=== PATIENT | female | born 1985 | race Caucasian/White ===

== ENCOUNTER 2016-07-21 16:41 | Outpatient (CLI) | payer BC ==
[~2016-07-21 16:41] MED LIST: ENDOCET 5-3251 EACH PO; IBUPROFEN800 MG PO; PRENATAL TABLE1 EAC3 PO; ZYRTEC10 M3 PO
[2016-07-21 16:54] VITALS: BP 115/60
== END 2016-07-21 18:58 | disposition home or self-care (01) ==
LOC: LDRP-OP 16:41 → 2WEST 16:45 → LDRP-OP 10-20 12:42
DX: O26.893 Other specified pregnancy related conditions, third trimester (principal); R10.9 Unspecified abdominal pain; Z3A.31 31 weeks gestation of pregnancy
CPT/HCPCS: 59025; G0378

== ENCOUNTER 2016-09-05 09:33 | Inpatient (IN) | payer BC ==
[~2016-09-05] VITALS: Ht 157.5 cm; Wt 81.6 kg
[2016-09-05] VITALS (16 sets, daily range): BP systolic 104–121; BP diastolic 62–70
[2016-09-05] MEDS ORDERED: COLACE100 MG PO (10:19)
[2016-09-05 10:42] LABS: EOSINOPHIL (%) 1.2 % (0-5); EOSINOPHIL COUNT 0.1 K/uL (0-0.3); HEMATOCRIT 35.3 % (36.0-46.0); IMMATURE GRANULOCYTE (%) 1.6 % (0.0-0.7); IMMATURE GRANULOCYTE COUNT 0.1 K/uL; INSTRUMENT ABS NEUTROPHIL CT 5.3 K/uL; LYMPHOCYTE COUNT 1.7 K/uL (1.0-2.8); MCH 31.6 PG (29.0-34.0); MCHC 34.6 G/DL (30.0-36.0); MCV 91.5 FL (83-99); MEAN PLAT.VOLUME 11.6 uM^3 (9.5-12.4); MONOCYTE COUNT 0.5 K/uL (0-0.8); NEUTROPHIL (%) 68.8 % (45-76); NEUTROPHIL COUNT 5.3 K/uL (1.8-6.4); PLATELET COUNT 176 K/uL (156-360); RBC DIS.WIDTH-CV 14.2 % (11.8-14.6); RBC DIS.WIDTH-SD 46.7 % (39-53); RED BLOOD COUNT 3.86 M/uL (3.80-5.20); WHITE BLOOD COUNT 7.6 K/uL (4.1-10.2)
[2016-09-05] MEDS ORDERED: IBUPROFEN800 MG PO (20:03)
[2016-09-06 07:35] VITALS: BP 87/52
[2016-09-06 08:45] VITALS: BP 112/54
[2016-09-06 15:38] VITALS: BP 86/53
[2016-09-06 15:46] VITALS: BP 107/59
[2016-09-07 07:43] VITALS: BP 101/64
== END 2016-09-07 13:05 | disposition home or self-care (01) | DRG 775 ==
LOC: LDRP-OP 09:33 → 2WEST 09:37 → LDRP-OP 10-20 20:55
PROVIDERS: Nurse Practitioner
PROC: 10E0XZZ Delivery of Products of Conception, External Approach (ICD-10-PCS; principal; 2016-09-05)
DX: O24.420 Gestational diabetes mellitus in childbirth, diet controlled (principal); Z3A.38 38 weeks gestation of pregnancy; Z37.0 Single live birth; O99.824 Streptococcus B carrier state complicating childbirth; O34.13 Maternal care for benign tumor of corpus uteri, third trimester; D25.2 Subserosal leiomyoma of uterus
CPT/HCPCS: 85025; J2540; J7120

== ENCOUNTER 2016-09-25 08:32 | Inpatient (IN) | payer BC ==
[~2016-09-25] VITALS: Ht 157.5 cm; Wt 74.0 kg
[~2016-09-25 08:32] MED LIST changes: +COLACE100 MG PO
[2016-09-25 10:36] LABS: EOSINOPHIL (%) 0.2 % (0-5); HEMATOCRIT 45.6 % (36.0-46.0); IMMATURE GRANULOCYTE (%) 0.5 % (0.0-0.7); IMMATURE GRANULOCYTE COUNT 0.1 K/uL; INSTRUMENT ABS NEUTROPHIL CT 12.1 K/uL; LYMPHOCYTE COUNT 0.5 K/uL (1.0-2.8); MCH 30.1 PG (29.0-34.0); MCHC 33.1 G/DL (30.0-36.0); MCV 90.8 FL (83-99); MEAN PLAT.VOLUME 11.2 uM^3 (9.5-12.4); MONOCYTE (%) 2.8 % (3-12); MONOCYTE COUNT 0.4 K/uL (0-0.8); NEUTROPHIL (%) 92.2 % (45-76); NEUTROPHIL COUNT 12.1 K/uL (1.8-6.4); RBC DIS.WIDTH-CV 12.4 % (11.8-14.6); RBC DIS.WIDTH-SD 41.1 % (39-53); WHITE BLOOD COUNT 13.1 K/uL (4.1-10.2)
[2016-09-25 10:37] LABS: PLATELET COUNT 252 K/uL (156-360); RED BLOOD COUNT 5.02 M/uL (3.80-5.20)
[2016-09-25 10:50] LABS: CHLORIDE 106 mEq/L (99-109); POTASSIUM 3.7 mEq/L (3.7-5.4); SODIUM 139 mEq/L (136-147)
[2016-09-25 10:52] LABS: GLUCOSE 108 mg/dL (70-99)
[2016-09-25 10:54] LABS: ANION GAP 9 MEQ/L (2-14); TOTAL BILIRUBIN 0.4 mg/dL (0.0-1.0)
[2016-09-25 10:56] LABS: ALKALINE PHOSPHATASE 79 IU/L (3-129); GFR ESTIMATE (CALCULATED) > 59 mL/min/
[2016-09-25 10:57] LABS: UREA NITROGEN (BUN) 16 mg/dL (9-23)
[2016-09-25 10:59] LABS: LIPASE 17 U/L (1.0-51.0)
[2016-09-25 12:39] LABS: ADD MIUA? YES; BILIRUBIN NEGATIVE; BLOOD LARGE; COLOR YELLOW ((YELLOW)); GLUCOSE (STRIP) NEGATIVE; KETONES NEGATIVE; LEUKOCYTES MODERATE; NITRITE NEGATIVE; PROTEIN (STRIP) NEGATIVE; SPECIFIC GRAVITY 1.036 (1.000-1.030); UROBILINOGEN 0.2 MG/DL (0.2-1.0)
[2016-09-25 13:02] LABS: BACTERIA RARE /HPF; EPITHELIAL CELLS RARE /HPF; MUCUS TRACE /LPF; RED BLOOD CELLS TNTC /HPF (0-5)
[2016-09-25] MEDS ORDERED: ZYRTEC10 M3 PO (18:41)
[2016-09-25 22:48] VITALS: BP 105/56
[2016-09-26] VITALS (8 sets, daily range): BP systolic 80–105; BP diastolic 42–65
[2016-09-26 07:38] LABS: EOSINOPHIL (%) 1.7 % (0-5); EOSINOPHIL COUNT 0.2 K/uL (0-0.3); HEMATOCRIT 36.3 % (36.0-46.0); IMMATURE GRANULOCYTE (%) 0.3 % (0.0-0.7); LYMPHOCYTE COUNT 1.4 K/uL (1.0-2.8); MCH 30.3 PG (29.0-34.0); MCHC 32.5 G/DL (30.0-36.0); MCV 93.3 FL (83-99); MEAN PLAT.VOLUME 11.5 uM^3 (9.5-12.4); MONOCYTE (%) 3.8 % (3-12); MONOCYTE COUNT 0.3 K/uL (0-0.8); NEUTROPHIL (%) 78.5 % (45-76); PLATELET COUNT 214 K/uL (156-360); RBC DIS.WIDTH-CV 12.9 % (11.8-14.6); RBC DIS.WIDTH-SD 44.1 % (39-53)
[2016-09-26 07:40] LABS: RED BLOOD COUNT 3.89 M/uL (3.80-5.20)
[2016-09-26 07:45] LABS: ALKALINE PHOSPHATASE 51 IU/L (3-129); ANION GAP 8 MEQ/L (2-14); CHLORIDE 108 MEQ/L (99-109); GFR ESTIMATE (CALCULATED) > 59 mL/min/; POTASSIUM 3.8 MEQ/L (3.7-5.4); SAMPLE HEMOLYSIS CHECK 0; SAMPLE ICTERIC CHECK 0; SAMPLE LIPEMIA CHECK 0; SODIUM 140 MEQ/L (136-147); TOTAL BILIRUBIN 0.5 MG/DL (0.0-1.0); UREA NITROGEN (BUN) 8 mg/dL (9-23)
[2016-09-26 07:47] LABS: GLUCOSE 71 mg/dL (70-99)
[2016-09-27 03:40] VITALS: BP 97/50
[2016-09-27 08:40] VITALS: BP 105/61
[2016-09-27] MEDS ORDERED: AUGMENTIN500 MG PO (09:49)
[2016-09-27] MEDS ORDERED: PERCOCET 5/31 TABLET PO (09:50)
[2016-09-27 16:30] VITALS: BP 123/68
== END 2016-09-27 18:45 | disposition home or self-care (01) | DRG 776 ==
LOC: EME 08:32 → 2EAST 18:17 → EDOF 18:17 → 2EAST 22:30
PROVIDERS: Emergency Medicine; Obstetrics & Gynecology
DX: O86.12 Endometritis following delivery (principal); O90.89 Other complications of the puerperium, not elsewhere classified; J18.9 Pneumonia, unspecified organism; J98.11 Atelectasis
CPT/HCPCS: 71020; 74177; 80053; 81003; 83690; 85025; 87086; 99281; 99285; J0295; J1885; J2270; J2405; J7030; J7050; J7120